=== PATIENT | female | born 1995 | race Two or more races ===

== ENCOUNTER 2017-07-05 19:00 | Observation (INO) | payer OTHER | END 2017-07-05 21:24 | disposition home or self-care (01) | DRG 781 | LOC: LDRP 19:00 | PROVIDERS: ADMIT Obstetrics & Gynecology; ATTEND Obstetrics & Gynecology | DX: O26.93 Pregnancy related conditions, unspecified, third trimester (principal); Z3A.32 32 weeks gestation of pregnancy | CPT/HCPCS: 59025; 76818; 81002; G0378 ==

== ENCOUNTER 2017-07-12 11:10 | Observation (INO) | payer MEDICAID ==
[2017-07-12 13:07] LABS: Basophils # (auto) 0 uL; Basophils % (auto) 0.4 % (0.0-2.0); CONDITION Y; Eosinophils # (auto) 0.1 uL; Eosinophils % (auto) 1.8 % (0.0-7.0); Hematocrit 36.8 % (36.0-46.0); Hemoglobin 12.4 g/dL (12.2-16.2); Lymphocytes # (auto) 1.1 uL; Lymphocytes % (auto) 13.3 % (10.0-50.0); Mean Corpuscular Hemoglobin 29.9 pg (28.0-32.0); Mean Corpuscular Hgb Conc. 33.7 g/dL (32.0-36.0); Mean Corpuscular Volume 88.6 fL (80.0-100.0); Mean Platelet Volume 8.9 fL (7.4-10.4); Monocytes # (auto) 0.6 uL; Monocytes % (auto) 7.4 % (0.0-12.0); Neutrophils # (auto) 6.2 uL; Neutrophils % (auto) 77.1 % (37.0-80.0); Platelet Count (auto) 226 10^3/uL (140-450); Red Cell Distribution Width 13.1 % (11.6-16.0); White Blood Cell 8.1 10^3/uL (4.4-10.8)
[2017-07-12] MEDS ORDERED: PREN-96 PO (14:11)
[2017-07-12] MEDS ORDERED: LEVO150T10 PO (14:11)
[2017-07-14 03:09] LABS: Thyroxine (T4) 15.2 ug/dL (4.5-12.0)
== END 2017-07-12 13:15 | disposition home or self-care (01) | DRG 566 ==
LOC: LDRP 11:10
PROVIDERS: ADMIT Obstetrics & Gynecology; ATTEND Obstetrics & Gynecology
DX: O99.283 Endocrine, nutritional and metabolic diseases complicating pregnancy, third trimester (principal); E03.9 Hypothyroidism, unspecified; Z3A.33 33 weeks gestation of pregnancy
CPT/HCPCS: 36415; 59025; 76818; 81002; 84443; 85025; G0378

== ENCOUNTER 2017-07-16 09:52 | Observation (INO) | payer MEDICAID ==
[~2017-07-16 09:52] MED LIST: LEVO150T10 PO; PREN-96 PO
== END 2017-07-16 11:40 | disposition home or self-care (01) | DRG 566 ==
LOC: LDRP 09:52
PROVIDERS: ADMIT Specialist; ATTEND Specialist
DX: O99.283 Endocrine, nutritional and metabolic diseases complicating pregnancy, third trimester (principal); E03.9 Hypothyroidism, unspecified; Z3A.34 34 weeks gestation of pregnancy
CPT/HCPCS: 59025; 76818; 81002; G0378

== ENCOUNTER 2017-07-19 10:00 | Observation (INO) | payer MEDICAID | END 2017-07-19 11:45 | disposition home or self-care (01) | DRG 566 | LOC: LDRP 10:00 | PROVIDERS: ADMIT Obstetrics & Gynecology; ATTEND Obstetrics & Gynecology | DX: O99.283 Endocrine, nutritional and metabolic diseases complicating pregnancy, third trimester (principal); E03.9 Hypothyroidism, unspecified; Z3A.34 34 weeks gestation of pregnancy | CPT/HCPCS: 59025; 76818; 81002; G0378 ==

== ENCOUNTER 2017-07-23 10:20 | Observation (INO) | payer MEDICAID ==
[2017-07-23] MEDS ORDERED: LEVO150T10 PO (11:48)
[2017-07-23] MEDS ORDERED: PREN-96 PO (11:48)
== END 2017-07-23 12:30 | disposition home or self-care (01) | DRG 566 ==
LOC: LDRP 10:20
PROVIDERS: ADMIT Obstetrics & Gynecology; ATTEND Obstetrics & Gynecology
DX: O99.283 Endocrine, nutritional and metabolic diseases complicating pregnancy, third trimester (principal); Z3A.35 35 weeks gestation of pregnancy
CPT/HCPCS: 59025; 76818; 81002; G0378

== ENCOUNTER 2017-07-26 08:50 | Observation (INO) | payer MEDICAID | END 2017-07-26 09:35 | disposition home or self-care (01) | DRG 566 | LOC: LDRP 08:50 | PROVIDERS: ADMIT Specialist; ATTEND Specialist | DX: O99.283 Endocrine, nutritional and metabolic diseases complicating pregnancy, third trimester (principal); E03.9 Hypothyroidism, unspecified; Z3A.35 35 weeks gestation of pregnancy | CPT/HCPCS: 59025; 81002; G0378 ==

== ENCOUNTER 2017-07-30 10:00 | Observation (INO) | payer MEDICAID | END 2017-07-30 11:40 | disposition home or self-care (01) | DRG 566 | LOC: LDRP 10:00 | PROVIDERS: ADMIT Obstetrics & Gynecology; ATTEND Obstetrics & Gynecology | DX: O99.283 Endocrine, nutritional and metabolic diseases complicating pregnancy, third trimester (principal); Z3A.36 36 weeks gestation of pregnancy | CPT/HCPCS: 59025; 76818; 81002; G0378 ==

== ENCOUNTER 2017-08-02 09:55 | Observation (INO) | payer MEDICAID | END 2017-08-02 11:25 | disposition home or self-care (01) | DRG 566 | LOC: LDRP 09:55 | PROVIDERS: ADMIT Obstetrics & Gynecology; ATTEND Obstetrics & Gynecology | DX: O99.283 Endocrine, nutritional and metabolic diseases complicating pregnancy, third trimester (principal); E03.9 Hypothyroidism, unspecified; Z3A.36 36 weeks gestation of pregnancy | CPT/HCPCS: 59025; 81002; G0378 ==

== ENCOUNTER 2017-08-06 11:20 | Observation (INO) | payer MEDICAID | END 2017-08-06 14:00 | disposition home or self-care (01) | DRG 566 | LOC: LDRP 11:20 | PROVIDERS: ADMIT Specialist; ATTEND Specialist | DX: O99.283 Endocrine, nutritional and metabolic diseases complicating pregnancy, third trimester (principal); E03.9 Hypothyroidism, unspecified; Z3A.37 37 weeks gestation of pregnancy | CPT/HCPCS: 59025; 76818; 81002; G0378 ==

== ENCOUNTER 2017-08-10 09:55 | Observation (INO) | payer MEDICAID ==
[~2017-08-10] VITALS: Ht 152.4 cm; Wt 73.5 kg
== END 2017-08-10 11:35 | disposition home or self-care (01) | DRG 566 ==
LOC: LDRP 09:55
PROVIDERS: ADMIT Obstetrics & Gynecology; ATTEND Obstetrics & Gynecology
DX: O99.283 Endocrine, nutritional and metabolic diseases complicating pregnancy, third trimester (principal); E03.9 Hypothyroidism, unspecified; Z3A.38 38 weeks gestation of pregnancy
CPT/HCPCS: 59025; 76818; 81002; G0378

== ENCOUNTER 2017-08-13 10:43 | Observation (INO) | payer MEDICAID | END 2017-08-13 12:15 | disposition home or self-care (01) | DRG 566 | LOC: LDRP 10:43 | PROVIDERS: ADMIT Obstetrics & Gynecology; ATTEND Obstetrics & Gynecology | DX: O99.283 Endocrine, nutritional and metabolic diseases complicating pregnancy, third trimester (principal); E03.9 Hypothyroidism, unspecified; Z3A.38 38 weeks gestation of pregnancy | CPT/HCPCS: 59025; 76818; 81002; G0378 ==